=== PATIENT | male | born 1985 | race Caucasian/White ===

== ENCOUNTER 2016-12-25 10:04 | Emergency (ER) | payer BC ==
[~2016-12-25 10:04] MED LIST: VITAMIN C PO
--- NOTE | 2016-12-26 16:19 | ER ---
ADMIT: 12/25/2016 RM/LOC: ER [facility] MR#: [id number] [id number] [address]ELISHA BORGES [place] [address] Emergency Room Report SEX: M AGE: 31 : 1985 DATE: 12/25/2016 TIME: 1004 hours. Please refer to my T-sheet for complete H and P. HISTORY OF PRESENT ILLNESS: Briefly, the patient is a 31-year-old, comes in with fatigue, headache, just does not feel well, it has been going on for 2 months, seems worse recently, it seems to be worse with exertion, he feels short of breath, kind of very multiple complaints. He is still able to exercise, he has been running. No fevers or chills. PHYSICAL EXAMINATION: VITAL SIGNS: Blood pressure 127/82, pulse 73, respirations 16, temp 97, sat 100%. GENERAL: No acute distress. HEENT: Grossly normal. LUNGS: Clear. HEART: Regular. ABDOMEN: Soft. SKIN: No rash. EMERGENCY DEPARTMENT COURSE: I gave him a GI cocktail, Ativan 1 mg p.o., he had symptoms improved immensely. CBC is normal. Chemistry is normal. EKG is sinus rhythm, rate 69, no changes. Chest x-ray, normal. I had a long discussion. He was ready for discharge. ASSESSMENT: 1. Atypical chest pain. 2. Gastroesophageal reflux disease. PLAN: Fluids. Continue his antacid. Advised him to follow up with Dr. Bui and return if worse. Richar Clark MD/ [facility]zar JOB #: [id number] CC: Richar Clark MD, Attending Physician Ney Bui MD, Family Physician
== END 2016-12-25 12:04 | disposition home or self-care (01) ==
LOC: ER 10:04
DX: K21.9 Gastro-esophageal reflux disease without esophagitis (principal); Z88.1 Allergy status to other antibiotic agents